=== PATIENT | male | born 1975 | race African-American/Black ===

== ENCOUNTER 2020-08-07 08:11 | Inpatient (IN) ==
[2020-08-07] MEDS ORDERED: KETOROLAC 30 MG/1 ML VIAL IV STA (08:47)
[2020-08-07 09:00] LABS: Basophils % 0.3 % (0.0-0.8); Eosinophils % 0.1 % (0.00-10.9); Hematocrit 32.8 VOL% (42.0-52.0); Hemoglobin 10.9 GM/DL (14.0-18.0); Immature Granulocytes % 1.8 %; Immature Granulocytes Absolute 0.26 #; Lymphocytes # 1.4 10*3/uL (1.4-4.0); Lymphocytes % 9.5 % (21.2-54.2); Mean Corpuscular HGB Conc 33.2 GM/DL (32-36); Mean Corpuscular Volume 93.7 FL (87-102); Mean Platelet Volume 12.3 FL (9.6-12.0); Neutrophils % 75.3 % (38.7-73.9); Platelet Count 85 T/CUMM (130-400); Red Cell Distribution Width 13.4 % (9.3-17.3); White Blood Count 14.8 T/CUMM (4-12)
[2020-08-07] MEDS ORDERED: cefTRIAXone 250 MG VIAL IM STA (09:07)
[2020-08-07] MEDS ORDERED: cefTRIAXone 1,000 MG in SODIUM CHLORIDE 0.9% 100 ML IV STA (09:13)
[2020-08-07 09:20] LABS: Albumin 2.8 G/DL (3.4-5.0); Bilirubin,Total 1.3 MG/DL (0.2-1.0); Calcium 8.6 MG/DL (8.5-10.1); Osmolality,Calculated 245.8 MOS/KG (273-304); Potassium 3.7 MMOL/L (3.5-5.1); Total Protein 9.1 G/DL (6.4-8.2)
[2020-08-07 09:35] LABS: Hypochromasia Slight; Microcytosis Slight; Platelet Estimate Decreased
[2020-08-07 09:54] LABS: Bacteria,Urine Occasional /HPF (Few); Bilirubin,Urine Negative (Negative); Blood, Urine Moderate mg/dL (Negative); Glucose,Urine (UA) Negative (Negative); Ketones,Urine Negative (Negative); Mucus,Urine Occasional /LPF (Occasional); Nitrite,Urine Negative (Negative); Protein,Urine Negative; RBC,Urine 41 /HPF (0-4); Squamous Epithelial Cell,Urine Occasional /HPF (0-10); Urine Appearance CLOUDY (Clear); Urine Color Yellow (Yellow); Urine Specific Gravity 1.002 (1.001-1.035)
[2020-08-07] MEDS ORDERED: ONDANSETRON 4 MG/2 ML VIAL IV PRN (11:12)
[2020-08-07] MEDS ORDERED: NICOTINE 21 MG/24 HR PATCH TRANSDERM PRN (11:12)
[2020-08-07] MEDS ORDERED: GLUCAGON 1 MG VIAL IM PRN (11:12)
[2020-08-07] MEDS ORDERED: DEXTROSE 50% 25 GM/50 ML VIAL IV PRN (11:12)
[2020-08-07] MEDS ORDERED: LEVOFLOXACIN INJ 750 MG/150 ML PREMIX IV SCH (11:30)
[2020-08-07] MEDS ORDERED: THIAMINE INJ 100 MG, FOLIC ACID INJ 1 MG, MULTIVITAMIN INJ 10 ML in SODIUM CHLORIDE 0.9... IV SCH (11:30)
[2020-08-07] MEDS ORDERED: ENOXAPARIN 40 MG/0.4 ML SYRINGE SUBCUT SCH (11:30)
[2020-08-07] MEDS ORDERED: KETOROLAC 30 MG/1 ML VIAL IV PRN (11:53)
[2020-08-07 12:52] LABS: Barbiturates Screen,Urine Negative (Negative); Benzodiazepines Screen,Urine Negative (Negative); Cannabinoid Screen,Urine Positive (Negative); Opiate Screen,Urine Negative (Negative); Phencyclidine Screen,Urine Negative (Negative)
[2020-08-07 13:27] LABS: Hepatitis B Core IgM Quant 0.06 Index; Hepatitis B Surface Ag Quant < 0.10 Index; Hepatitis B Surface Ag Result Non-Reactive (NonReactive); Hepatitis C Virus Ab Quant 0.07 Index; Hepatitis C Virus Ab Result Non-Reactive (NonReactive)
[2020-08-07] MEDS: MULTIVITAMIN (CENTRUM) TABLET PO SCH (14:41)
[2020-08-07] MEDS: SODIUM CHLORIDE 0.9% 1,000 ML IV SCH (14:41)
[2020-08-07] MEDS: THIAMINE 100 MG TABLET PO SCH (14:42)
[2020-08-07] MEDS: FOLIC ACID 1 MG TABLET PO SCH (14:42)
[2020-08-07] MEDS: chlordiazePOXIDE 25 MG CAPSULE PO PRN (20:50)
[2020-08-07] MEDS: TAMSULOSIN 0.4 MG CAPSULE PO SCH (20:50)
[2020-08-07] MEDS: ACETAMINOPHEN 325 MG TABLET PO PRN (23:25)
[2020-08-08] MEDS: SODIUM CHLORIDE 0.9% 1,000 ML IV SCH ×3 (01:11→16:50)
[2020-08-08 04:16] LABS: Basophils % 0.2 % (0.0-0.8); Hematocrit 30.9 VOL% (42.0-52.0); Hemoglobin 10.5 GM/DL (14.0-18.0); Immature Granulocytes % 4.5 %; Lymphocytes # 0.8 10*3/uL (1.4-4.0); Lymphocytes % 8.5 % (21.2-54.2); Mean Corpuscular Volume 92.8 FL (87-102); Monocytes % 13.4 % (1.7-12.7); Neutrophils % 73.4 % (38.7-73.9); Red Blood Count 3.33 MC/CUMM (3.8-5.5); Red Cell Distribution Width 13.2 % (9.3-17.3)
[2020-08-08 04:29] LABS: Platelet Count 63 T/CUMM (130-400)
[2020-08-08 04:36] LABS: Albumin 2.4 G/DL (3.4-5.0); Bilirubin,Total 1.7 MG/DL (0.2-1.0); Calcium 8.1 MG/DL (8.5-10.1); Osmolality,Calculated 248.6 MOS/KG (273-304); Potassium 3.7 MMOL/L (3.5-5.1); Total Protein 7.6 G/DL (6.4-8.2)
[2020-08-08 04:47] LABS: Band Neutrophils 1 % (0-10); Hypochromasia 1+; Lymphocytes 6 % (20-55); Microcytosis Slight; Segmented Neutrophils 82 % (50-85); Total Cells Counted 100
[2020-08-08] MEDS: THIAMINE 100 MG TABLET PO SCH (08:59)
[2020-08-08] MEDS: FOLIC ACID 1 MG TABLET PO SCH (08:59)
[2020-08-08] MEDS: MULTIVITAMIN (CENTRUM) TABLET PO SCH (08:59)
[2020-08-08] MEDS: chlordiazePOXIDE 25 MG CAPSULE PO PRN ×2 (09:00→20:17)
[2020-08-08] MEDS: cefTRIAXone 1,000 MG in SODIUM CHLORIDE 0.9% 100 ML IV SCH (10:56)
[2020-08-08] MEDS: ACETAMINOPHEN 325 MG TABLET PO PRN ×2 (11:58→20:18)
[2020-08-08] MEDS: TAMSULOSIN 0.4 MG CAPSULE PO SCH (20:18)
[2020-08-09] MEDS: SODIUM CHLORIDE 0.9% 1,000 ML IV SCH ×4 (02:40→15:10)
[2020-08-09 05:27] LABS: Basophils % 0.4 % (0.0-0.8); Eosinophils % 0.2 % (0.00-10.9); Hematocrit 29.6 VOL% (42.0-52.0); Hemoglobin 9.9 GM/DL (14.0-18.0); Immature Granulocytes % 1.1 %; Immature Granulocytes Absolute 0.06 #; Lymphocytes # 0.9 10*3/uL (1.4-4.0); Lymphocytes % 14.9 % (21.2-54.2); Mean Corpuscular HGB Conc 33.4 GM/DL (32-36); Mean Corpuscular Volume 93.4 FL (87-102); Mean Platelet Volume 11.8 FL (9.6-12.0); Monocytes % 18.4 % (1.7-12.7); Platelet Count 77 T/CUMM (130-400); Red Blood Count 3.17 MC/CUMM (3.8-5.5); Red Cell Distribution Width 13.3 % (9.3-17.3); White Blood Count 5.7 T/CUMM (4-12)
[2020-08-09 05:54] LABS: Calcium 8.1 MG/DL (8.5-10.1); Eosinophils 1 % (0-10); Hypochromasia 1+; Lymphocytes 15 % (20-55); Osmolality,Calculated 266.2 MOS/KG (273-304); Potassium 3.4 MMOL/L (3.5-5.1); Segmented Neutrophils 74 % (50-85)
[2020-08-09 05:55] LABS: Microcytosis Slight; Polychromasia Slight
[2020-08-09 05:56] LABS: Total Cells Counted 100
[2020-08-09] MEDS: FOLIC ACID 1 MG TABLET PO SCH (09:05)
[2020-08-09] MEDS: THIAMINE 100 MG TABLET PO SCH (09:05)
[2020-08-09] MEDS: MULTIVITAMIN (CENTRUM) TABLET PO SCH (09:05)
[2020-08-09] MEDS: cefTRIAXone 1,000 MG in SODIUM CHLORIDE 0.9% 100 ML IV SCH (11:23)
[2020-08-09] MEDS: ACETAMINOPHEN 325 MG TABLET PO PRN (11:25)
[2020-08-09 11:44] VITALS: BP 156/75
[2020-08-09] MEDS ORDERED: POTASSIUM CHLORIDE 20 MEQ TABLET PO ONE (13:16)
[2020-08-09] MEDS ORDERED: LEVOFLOXACIN INJ 500 MG/100 ML PREMIX IV SCH (13:30)
== END 2020-08-09 14:59 | disposition left against medical advice (07) | DRG 728 ==
LOC: N.ED 08:11 → SUATTDRO 11:12 → N.EDINP 11:12 → N.3E 13:04
PROVIDERS: ADMIT Internal Medicine; ATTEND Internal Medicine

== ENCOUNTER 2021-06-05 06:59 | Inpatient (IN) ==
[2021-06-05] MEDS ORDERED: ALBUTEROL 2.5 MG/3 ML NEB RESP TX STA (07:18)
[2021-06-05 07:52] LABS: Basophils % 0.4 % (0.0-0.8); Eosinophils % 0.2 % (0.00-10.9); Hematocrit 22.4 VOL% (42.0-52.0); Hemoglobin 7.7 GM/DL (14.0-18.0); Immature Granulocytes % 1.8 %; Lymphocytes # 1.3 10*3/uL (1.4-4.0); Lymphocytes % 23.1 % (21.2-54.2); Mean Corpuscular HGB Conc 34.4 GM/DL (32-36); Mean Corpuscular Volume 93.3 FL (87-102); Mean Platelet Volume 13.1 FL (9.6-12.0); Monocytes % 9.7 % (1.7-12.7); Neutrophils % 64.8 % (38.7-73.9); Platelet Count 40 T/CUMM (130-400); Red Cell Distribution Width 16.4 % (9.3-17.3); White Blood Count 5.5 T/CUMM (4-12)
[2021-06-05 08:08] LABS: Hypochromia 1+; Microcytosis 1+; Platelet Estimate Decreased
[2021-06-05 08:09] LABS: Bilirubin,Total 2.8 MG/DL (0.20-1.00); Osmolality,Calculated 251.1 MOS/KG (273-304); Potassium 2.6 MMOL/L (3.5-5.1); Total Protein 8.3 G/DL (6.4-8.2)
[2021-06-05 08:11] LABS: INR 1.2; PT Patient Result 13.1 SECS (10.5-12.0); Partial Thromboplastin Time 35.3 SECS (23.8-32.1)
[2021-06-05 08:17] LABS: % Iron Saturation 53.1 % (18-50)
[2021-06-05 08:35] LABS: Folate 4.84 NG/ML (5.38-24.0)
[2021-06-05] MEDS ORDERED: POTASSIUM CHLORIDE 20 MEQ TABLET PO ONE ×2 (10:07→16:10)
[2021-06-05] MEDS: LACTATED RINGERS 1,000 ML IV SCH ×2 (11:06→22:56)
[2021-06-05] MEDS ORDERED: ONDANSETRON 4 MG/2 ML VIAL IV PRN (11:40)
[2021-06-05] MEDS ORDERED: hydrALAZINE 20 MG/1 ML VIAL IV PRN (11:40)
[2021-06-05] MEDS ORDERED: ACETAMINOPHEN 325 MG TABLET PO PRN (11:40)
[2021-06-05] MEDS ORDERED: GLUCAGON 1 MG VIAL IM PRN (11:40)
[2021-06-05] MEDS ORDERED: DEXTROSE 10% 250 ML BAG IV PRN (11:53)
[2021-06-05] MEDS ORDERED: LORazepam 2 MG/1 ML VIAL IV PRN (12:00)
[2021-06-05] MEDS: ALBUTEROL/IPRATROPIUM 3 ML NEB RESP TX SCH ×2 (13:00→19:00)
[2021-06-05 13:06] LABS: Hepatitis B Core IgM Quant 0.09 Index; Hepatitis B Surface Ag Quant < 0.10 Index; Hepatitis B Surface Ag Result Non-Reactive (NonReactive); Hepatitis C Virus Ab Quant 0.26 Index; Hepatitis C Virus Ab Result Non-Reactive (NonReactive)
[2021-06-05 14:17] LABS: Hemoglobin 7.2 GM/DL (14.0-18.0)
[2021-06-05 14:33] LABS: Calcium 7.8 MG/DL (8.5-10.1); Osmolality,Calculated 258.7 MOS/KG (273-304); Potassium 2.8 MMOL/L (3.5-5.1)
[2021-06-05] MEDS: FOLIC ACID 1 MG TABLET PO SCH (15:46)
[2021-06-05] MEDS ORDERED: MAGNESIUM SULF RIDER 2 GM/50 ML PREMIX IV ONE (16:10)
[2021-06-05] MEDS ORDERED: SODIUM CHLORIDE 0.9% 1,000 ML IV PRN (16:11)
[2021-06-05] MEDS: PANTOPRAZOLE 40 MG VIAL IV SCH ×2 (18:07→22:55)
[2021-06-05 20:25] LABS: Hematocrit 21.1 VOL% (42.0-52.0); Hemoglobin 7.1 GM/DL (14.0-18.0)
[2021-06-05] MEDS: DOCUSATE SODIUM 100 MG CAPSULE PO SCH (22:55)
[2021-06-06] MEDS: ALBUTEROL/IPRATROPIUM 3 ML NEB RESP TX SCH ×4 (00:20→19:21)
[2021-06-06 05:21] LABS: Basophils % 0.4 % (0.0-0.8); Hematocrit 23.5 VOL% (42.0-52.0); Immature Granulocytes % 1.5 %; Immature Granulocytes Absolute 0.08 #; Lymphocytes # 1.2 10*3/uL (1.4-4.0); Lymphocytes % 22.6 % (21.2-54.2); Mean Corpuscular Volume 91.4 FL (87-102); Mean Platelet Volume 12.8 FL (9.6-12.0); Monocytes % 9.9 % (1.7-12.7); Neutrophils % 65.6 % (38.7-73.9); Red Blood Count 2.57 MC/CUMM (3.8-5.5); Red Cell Distribution Width 17.3 % (9.3-17.3); White Blood Count 5.4 T/CUMM (4-12)
[2021-06-06 05:29] LABS: Platelet Count 35 T/CUMM (130-400)
[2021-06-06 05:36] LABS: Calcium 7.8 MG/DL (8.5-10.1); Osmolality,Calculated 261.4 MOS/KG (273-304); Potassium 3.5 MMOL/L (3.5-5.1)
[2021-06-06] MEDS ORDERED: PANTOPRAZOLE 40 MG TABLET PO SCH (06:30)
[2021-06-06 06:48] LABS: Target Cells Slight
[2021-06-06 06:49] LABS: Platelet Estimate Adequate
[2021-06-06] MEDS ORDERED: LACTATED RINGERS 1,000 ML IV SCH (08:00)
[2021-06-06] MEDS: LACTATED RINGERS 1,000 ML IV SCH ×2 (12:18→17:12)
[2021-06-06] MEDS: PANTOPRAZOLE 40 MG VIAL IV SCH ×2 (12:24→21:01)
[2021-06-06] MEDS: MULTIVITAMIN (CENTRUM) TABLET PO SCH (12:24)
[2021-06-06] MEDS: NICOTINE 21 MG/24 HR PATCH TRANSDERM SCH ×2 (12:24→17:23)
[2021-06-06] MEDS: FOLIC ACID 1 MG TABLET PO SCH (12:25)
[2021-06-06] MEDS: DOCUSATE SODIUM 100 MG CAPSULE PO SCH ×2 (12:25→21:01)
[2021-06-06] MEDS: THIAMINE 100 MG TABLET PO SCH (16:25)
[2021-06-07] MEDS: ALBUTEROL/IPRATROPIUM 3 ML NEB RESP TX SCH ×2 (00:45→07:45)
[2021-06-07] MEDS ORDERED: LORazepam 2 MG/1 ML VIAL IM PRN (01:12)
[2021-06-07] MEDS: LACTATED RINGERS 1,000 ML IV SCH ×2 (02:52→11:54)
[2021-06-07 05:21] LABS: Basophils % 0.3 % (0.0-0.8); Eosinophils % 0.2 % (0.00-10.9); Hematocrit 24.7 VOL% (42.0-52.0); Hemoglobin 8.2 GM/DL (14.0-18.0); Immature Granulocytes % 1.1 %; Immature Granulocytes Absolute 0.07 #; Lymphocytes # 1.3 10*3/uL (1.4-4.0); Lymphocytes % 21.3 % (21.2-54.2); Mean Corpuscular HGB Conc 33.2 GM/DL (32-36); Mean Corpuscular Volume 91.8 FL (87-102); Mean Platelet Volume 12.7 FL (9.6-12.0); Monocytes % 10.3 % (1.7-12.7); Neutrophils % 66.8 % (38.7-73.9); Red Blood Count 2.69 MC/CUMM (3.8-5.5); Red Cell Distribution Width 18.8 % (9.3-17.3); White Blood Count 6.2 T/CUMM (4-12)
[2021-06-07 05:22] LABS: Platelet Count 45 T/CUMM (130-400)
[2021-06-07 05:43] LABS: Hypochromia 1+; Platelet Estimate Decreased
[2021-06-07 05:51] LABS: Albumin 1.7 G/DL (3.4-5.0); Bilirubin,Total 2.7 MG/DL (0.20-1.00); Calcium 7.9 MG/DL (8.5-10.1); Osmolality,Calculated 259.5 MOS/KG (273-304); Potassium 3.5 MMOL/L (3.5-5.1); Total Protein 7.5 G/DL (6.4-8.2)
[2021-06-07] MEDS: FOLIC ACID 1 MG TABLET PO SCH (08:31)
[2021-06-07] MEDS: THIAMINE 100 MG TABLET PO SCH (08:31)
[2021-06-07] MEDS: MULTIVITAMIN (CENTRUM) TABLET PO SCH (08:31)
[2021-06-07] MEDS: DOCUSATE SODIUM 100 MG CAPSULE PO SCH (08:31)
[2021-06-07] MEDS: NICOTINE 21 MG/24 HR PATCH TRANSDERM SCH (08:32)
[2021-06-07] MEDS: PANTOPRAZOLE 40 MG VIAL IV SCH (08:36)
[2021-06-07 12:24] VITALS: BP 105/53
== END 2021-06-07 13:49 | disposition home or self-care (01) | DRG 378 ==
LOC: N.ED 06:59 → SUATTDRO 11:06 → N.EDINP 11:06 → N.5E 11:36
PROVIDERS: ADMIT Internal Medicine; ATTEND Internal Medicine

== ENCOUNTER 2021-08-10 10:56 | Inpatient (IN) ==
[2021-08-10] MEDS ORDERED: SODIUM CHLORIDE 0.9% 1,000 ML IV STA (11:39)
[2021-08-10] MEDS ORDERED: THIAMINE INJ 100 MG, FOLIC ACID INJ 1 MG, MAGNESIUM SULF INJ 2 GM, MULTIVITAMIN INJ 10 ... IV ONE (11:39)
[2021-08-10 12:21] LABS: Basophils % 0.3 % (0.0-0.8); Hematocrit 24.8 VOL% (42.0-52.0); Hemoglobin 8.6 GM/DL (14.0-18.0); Immature Granulocytes % 2.3 %; Immature Granulocytes Absolute 0.24 #; Lymphocytes # 1.1 10*3/uL (1.4-4.0); Lymphocytes % 10.4 % (21.2-54.2); Mean Corpuscular HGB Conc 34.7 GM/DL (32-36); Mean Corpuscular Volume 90.2 FL (87-102); Mean Platelet Volume 13.6 FL (9.6-12.0); Monocytes # 1.3 10*3/uL (0.11-0.8); Monocytes % 12.3 % (1.7-12.7); Neutrophils % 74.7 % (38.7-73.9); Platelet Count 73 T/CUMM (130-400); Red Blood Count 2.75 MC/CUMM (3.8-5.5); Red Cell Distribution Width 16.3 % (9.3-17.3); White Blood Count 10.3 T/CUMM (4-12)
[2021-08-10 12:27] LABS: Mucus,Urine Occasional /LPF (Occasional); RBC,Urine 1 /HPF (0-4); Squamous Epithelial Cell,Urine Occasional /HPF (0-10); Urine Appearance Slightly Cloudy (Clear); Urine Color Yellow (Yellow); Urine Specific Gravity 1.006 (1.001-1.035)
[2021-08-10 12:28] LABS: Bilirubin,Urine Negative (Negative); Blood, Urine Negative (Negative); Glucose,Urine (UA) Negative (Negative); Ketones,Urine Trace mg/dL (Negative); Nitrite,Urine Negative (Negative); Protein,Urine Negative (Negative)
[2021-08-10 12:28] LABS: INR 1.2
[2021-08-10 12:43] LABS: Barbiturates Screen,Urine Negative (Negative); Benzodiazepines Screen,Urine Negative (Negative); Cannabinoid Screen,Urine Negative (Negative); Opiate Screen,Urine Negative (Negative); Phencyclidine Screen,Urine Negative (Negative)
[2021-08-10 12:46] LABS: Albumin 2.1 G/DL (3.4-5.0); Bilirubin,Total 2.5 MG/DL (0.20-1.00); Calcium 8.3 MG/DL (8.5-10.1); Osmolality,Calculated 252.2 MOS/KG (273-304); Potassium 3.1 MMOL/L (3.5-5.1); Thyroid Stimulating Hormone 1.04 uIU/ml (0.358-3.74); Total Protein 8.8 G/DL (6.4-8.2)
[2021-08-10] MEDS ORDERED: MAGNESIUM SULF RIDER 4 GM/100 ML PREMIX IV PRN (13:27)
[2021-08-10] MEDS ORDERED: MAGNESIUM SULF RIDER 2 GM/50 ML PREMIX IV PRN (13:27)
[2021-08-10] MEDS ORDERED: POTASSIUM CHLORIDE 20 MEQ TABLET PO PRN (13:27)
[2021-08-10] MEDS ORDERED: GLUCAGON 1 MG VIAL IM PRN (13:39)
[2021-08-10] MEDS ORDERED: ONDANSETRON 4 MG/2 ML VIAL IV PRN (13:39)
[2021-08-10] MEDS ORDERED: NICOTINE 21 MG/24 HR PATCH TRANSDERM PRN (13:39)
[2021-08-10] MEDS ORDERED: ACETAMINOPHEN 325 MG TABLET PO PRN (13:39)
[2021-08-10] MEDS ORDERED: DEXTROSE 10% 250 ML BAG IV PRN (13:52)
[2021-08-10] MEDS ORDERED: LACTATED RINGERS 1,000 ML IV SCH (14:00)
[2021-08-10] MEDS: PANTOPRAZOLE 40 MG TABLET PO SCH (14:37)
[2021-08-10] MEDS: SODIUM CHLORIDE 0.9% 1,000 ML IV SCH (14:37)
[2021-08-10] MEDS: chlordiazePOXIDE 25 MG CAPSULE PO SCH ×2 (14:37→21:30)
[2021-08-10 14:43] LABS: Arterial Base Excess iSTAT -2 MMOL/L (-2.5-2.5); Arterial Bicarbonate iSTAT 20.8 MMOL/L (20-26); Arterial O2 Saturation iSTAT 98 % (95-100); Arterial PCO2 iSTAT 29 MM HG (35-48); Arterial PO2 iSTAT 96 MM HG (80-95); Arterial Total CO2 iSTAT 22 MMO/L (23-27); Arterial pH iSTAT 7.461 (7.35-7.45)
[2021-08-10] MEDS: POTASSIUM CHLORIDE RIDER 10 MEQ/100 ML PREMIX IV PRN (18:25)
[2021-08-10] MEDS: FOLIC ACID 1 MG TABLET PO SCH (21:30)
[2021-08-11] MEDS: POTASSIUM CHLORIDE RIDER 10 MEQ/100 ML PREMIX IV PRN ×3 (00:17→03:46)
[2021-08-11] MEDS: SODIUM CHLORIDE 0.9% 1,000 ML IV SCH ×3 (00:17→21:10)
[2021-08-11] MEDS: chlordiazePOXIDE 25 MG CAPSULE PO SCH ×4 (01:54→21:10)
[2021-08-11 04:51] LABS: Basophils % 0.1 % (0.0-0.8); Hematocrit 23.1 VOL% (42.0-52.0); Hemoglobin 7.8 GM/DL (14.0-18.0); Immature Granulocytes % 2.1 %; Immature Granulocytes Absolute 0.17 #; Lymphocytes # 0.9 10*3/uL (1.4-4.0); Lymphocytes % 10.8 % (21.2-54.2); Mean Corpuscular HGB Conc 33.8 GM/DL (32-36); Mean Corpuscular Volume 91.7 FL (87-102); Mean Platelet Volume 11.3 FL (9.6-12.0); Monocytes # 0.8 10*3/uL (0.11-0.8); Monocytes % 10.3 % (1.7-12.7); Neutrophils % 76.7 % (38.7-73.9); Platelet Count 77 T/CUMM (130-400); Red Blood Count 2.52 MC/CUMM (3.8-5.5); Red Cell Distribution Width 16.9 % (9.3-17.3); White Blood Count 8.2 T/CUMM (4-12)
[2021-08-11 05:13] LABS: Albumin 1.5 G/DL (3.4-5.0); Bilirubin,Total 1.6 MG/DL (0.20-1.00); Calcium 7.4 MG/DL (8.5-10.1); Osmolality,Calculated 260.5 MOS/KG (273-304); Platelet Estimate Decreased; Potassium 3.1 MMOL/L (3.5-5.1); Total Protein 7.1 G/DL (6.4-8.2)
[2021-08-11] MEDS: PANTOPRAZOLE 40 MG TABLET PO SCH (05:45)
[2021-08-11] MEDS ORDERED: POTASSIUM CHLORIDE 20 MEQ TABLET PO ONE (07:35)
[2021-08-11] MEDS: THIAMINE 100 MG TABLET PO SCH (08:12)
[2021-08-11] MEDS: MULTIVITAMIN (BEROCCA) TABLET PO SCH (08:12)
[2021-08-11] MEDS: ATORVASTATIN 40 MG TABLET PO SCH (21:10)
[2021-08-11] MEDS: FOLIC ACID 1 MG TABLET PO SCH (21:10)
[2021-08-12 04:56] LABS: Basophils % 0.3 % (0.0-0.8); Eosinophils % 0.1 % (0.00-10.9); Hematocrit 22.6 VOL% (42.0-52.0); Hemoglobin 7.5 GM/DL (14.0-18.0); Immature Granulocytes % 0.9 %; Immature Granulocytes Absolute 0.06 #; Lymphocytes # 1.4 10*3/uL (1.4-4.0); Lymphocytes % 19.9 % (21.2-54.2); Mean Corpuscular HGB Conc 33.2 GM/DL (32-36); Mean Corpuscular Volume 93.8 FL (87-102); Mean Platelet Volume 11.8 FL (9.6-12.0); Monocytes % 15.4 % (1.7-12.7); Neutrophils % 63.4 % (38.7-73.9); Platelet Count 86 T/CUMM (130-400); Red Blood Count 2.41 MC/CUMM (3.8-5.5); Red Cell Distribution Width 17.4 % (9.3-17.3); White Blood Count 6.8 T/CUMM (4-12)
[2021-08-12 05:01] LABS: Calcium 7.7 MG/DL (8.5-10.1); Osmolality,Calculated 265.2 MOS/KG (273-304); Potassium 3.1 MMOL/L (3.5-5.1)
[2021-08-12 05:11] LABS: Risk Ratio 3.53; VLDL Cholesterol 12.4 MG/DL
[2021-08-12] MEDS: PANTOPRAZOLE 40 MG TABLET PO SCH (05:49)
[2021-08-12] MEDS: chlordiazePOXIDE 25 MG CAPSULE PO SCH ×3 (05:49→21:35)
[2021-08-12] MEDS ORDERED: POTASSIUM CHLORIDE 20 MEQ TABLET PO ONE (07:32)
[2021-08-12 09:16] LABS: % Iron Saturation 34.6 % (18-50)
[2021-08-12] MEDS: THIAMINE 100 MG TABLET PO SCH (09:28)
[2021-08-12] MEDS: MULTIVITAMIN (BEROCCA) TABLET PO SCH (09:28)
[2021-08-12 10:39] LABS: Folate 13.6 NG/ML (5.38-24.0)
[2021-08-12] MEDS ORDERED: PHENYLEPH/MINERAL OIL/PETROLAT 57 GM TUBE TOP PRN (11:32)
[2021-08-12] MEDS: SODIUM CHLORIDE 0.9% 1,000 ML IV SCH (20:15)
[2021-08-12] MEDS: ATORVASTATIN 40 MG TABLET PO SCH (21:35)
[2021-08-12] MEDS: FOLIC ACID 1 MG TABLET PO SCH (21:35)
[2021-08-13 05:18] LABS: Basophils % 0.4 % (0.0-0.8); Eosinophils % 0.4 % (0.00-10.9); Hematocrit 22.4 VOL% (42.0-52.0); Hemoglobin 7.5 GM/DL (14.0-18.0); Immature Granulocytes % 0.8 %; Immature Granulocytes Absolute 0.04 #; Lymphocytes # 1.3 10*3/uL (1.4-4.0); Mean Corpuscular HGB Conc 33.5 GM/DL (32-36); Mean Corpuscular Volume 93.3 FL (87-102); Mean Platelet Volume 13.2 FL (9.6-12.0); Monocytes # 0.7 10*3/uL (0.11-0.8); Monocytes % 13.7 % (1.7-12.7); Neutrophils % 59.7 % (38.7-73.9); Platelet Count 89 T/CUMM (130-400); Red Cell Distribution Width 17.4 % (9.3-17.3); White Blood Count 5.3 T/CUMM (4-12)
[2021-08-13 05:33] LABS: Osmolality,Calculated 265.1 MOS/KG (273-304); Potassium 3.5 MMOL/L (3.5-5.1)
[2021-08-13] MEDS: chlordiazePOXIDE 25 MG CAPSULE PO SCH (06:26)
[2021-08-13] MEDS: PANTOPRAZOLE 40 MG TABLET PO SCH (06:26)
[2021-08-13] MEDS: THIAMINE 100 MG TABLET PO SCH (08:26)
[2021-08-13] MEDS: MULTIVITAMIN (BEROCCA) TABLET PO SCH (08:26)
[2021-08-13] MEDS ORDERED: SODIUM CHLORIDE 0.9% 1,000 ML IV PRN (08:53)
[2021-08-13] MEDS ORDERED: fentaNYL 100 MCG/2 ML VIAL ONE (10:04)
[2021-08-13] MEDS ORDERED: MIDAZOLAM 2 MG/2 ML VIAL ONE (10:04)
[2021-08-13] MEDS ORDERED: LIDOCAINE 2% 5 ML VIAL ONE (11:21)
[2021-08-13] MEDS ORDERED: SEVOFLURANE 1 UNIT/15 MINUTE INH ONE (11:21)
[2021-08-13] MEDS ORDERED: SUCCINYLCHOLINE 200 MG/10 ML VIAL ONE (11:21)
[2021-08-13] MEDS ORDERED: propofoL 200 MG/20 ML VIAL IV ONE (11:21)
[2021-08-13] MEDS ORDERED: ONDANSETRON 4 MG/2 ML VIAL ONE (11:21)
[2021-08-13] MEDS ORDERED: ROCURONIUM 50 MG/5 ML VIAL IV ONE (11:21)
[2021-08-13] MEDS: CHOLECALCIFEROL 5,000 UNIT TABLET PO SCH (12:36)
[2021-08-13] MEDS: SODIUM CHLORIDE 0.9% 1,000 ML IV SCH (21:21)
[2021-08-13] MEDS: DOCUSATE SODIUM 100 MG CAPSULE PO SCH (21:21)
[2021-08-13] MEDS: FOLIC ACID 1 MG TABLET PO SCH (21:21)
[2021-08-13] MEDS: ATORVASTATIN 40 MG TABLET PO SCH (21:21)
[2021-08-14] MEDS: SODIUM CHLORIDE 0.9% 1,000 ML IV SCH ×2 (03:40→20:28)
[2021-08-14 05:29] LABS: Basophils % 0.6 % (0.0-0.8); Eosinophils % 0.2 % (0.00-10.9); Hematocrit 25.1 VOL% (42.0-52.0); Hemoglobin 8.4 GM/DL (14.0-18.0); Immature Granulocytes % 0.8 %; Immature Granulocytes Absolute 0.05 #; Lymphocytes # 1.7 10*3/uL (1.4-4.0); Lymphocytes % 25.7 % (21.2-54.2); Mean Corpuscular HGB Conc 33.5 GM/DL (32-36); Mean Corpuscular Volume 92.6 FL (87-102); Mean Platelet Volume 12.8 FL (9.6-12.0); Monocytes # 0.6 10*3/uL (0.11-0.8); Monocytes % 9.9 % (1.7-12.7); Neutrophils % 62.8 % (38.7-73.9); Platelet Count 105 T/CUMM (130-400); Red Blood Count 2.71 MC/CUMM (3.8-5.5); Red Cell Distribution Width 17.4 % (9.3-17.3); White Blood Count 6.5 T/CUMM (4-12)
[2021-08-14 05:49] LABS: Calcium 7.7 MG/DL (8.5-10.1); Osmolality,Calculated 265.1 MOS/KG (273-304); Potassium 3.5 MMOL/L (3.5-5.1)
[2021-08-14] MEDS: PANTOPRAZOLE 40 MG TABLET PO SCH ×2 (06:07→06:12)
[2021-08-14] MEDS: THIAMINE 100 MG TABLET PO SCH (10:07)
[2021-08-14] MEDS: AMOXICILLIN/CLAV 875 MG TABLET PO SCH ×2 (10:07→17:38)
[2021-08-14] MEDS: DOCUSATE SODIUM 100 MG CAPSULE PO SCH ×2 (10:07→20:29)
[2021-08-14] MEDS: MULTIVITAMIN (BEROCCA) TABLET PO SCH (10:07)
[2021-08-14] MEDS: CHOLECALCIFEROL 5,000 UNIT TABLET PO SCH (10:07)
[2021-08-14] MEDS: FOLIC ACID 1 MG TABLET PO SCH (20:28)
[2021-08-14] MEDS: ATORVASTATIN 40 MG TABLET PO SCH (20:29)
[2021-08-15] MEDS: SODIUM CHLORIDE 0.9% 1,000 ML IV SCH ×4 (03:23→13:07)
[2021-08-15] MEDS: PANTOPRAZOLE 40 MG TABLET PO SCH (05:50)
[2021-08-15 06:14] LABS: Basophils % 0.7 % (0.0-0.8); Eosinophils % 0.3 % (0.00-10.9); Hematocrit 24.2 VOL% (42.0-52.0); Hemoglobin 8.1 GM/DL (14.0-18.0); Immature Granulocytes Absolute 0.06 #; Lymphocytes # 1.9 10*3/uL (1.4-4.0); Lymphocytes % 31.3 % (21.2-54.2); Mean Corpuscular HGB Conc 33.5 GM/DL (32-36); Mean Corpuscular Volume 92.7 FL (87-102); Mean Platelet Volume 12.4 FL (9.6-12.0); Monocytes # 0.6 10*3/uL (0.11-0.8); Monocytes % 9.3 % (1.7-12.7); Neutrophils % 57.4 % (38.7-73.9); Platelet Count 112 T/CUMM (130-400); Red Blood Count 2.61 MC/CUMM (3.8-5.5); Red Cell Distribution Width 17.4 % (9.3-17.3); White Blood Count 5.9 T/CUMM (4-12)
[2021-08-15 06:32] LABS: Calcium 7.5 MG/DL (8.5-10.1); Osmolality,Calculated 269.8 MOS/KG (273-304); Potassium 3.1 MMOL/L (3.5-5.1)
[2021-08-15] MEDS: POTASSIUM CHLORIDE 20 MEQ TABLET PO PRN ×3 (06:47→13:06)
[2021-08-15] MEDS ORDERED: POTASSIUM CHLORIDE 20 MEQ TABLET PO ONE (08:30)
[2021-08-15] MEDS: MULTIVITAMIN (BEROCCA) TABLET PO SCH (09:27)
[2021-08-15] MEDS: AMOXICILLIN/CLAV 875 MG TABLET PO SCH (09:27)
[2021-08-15] MEDS: DOCUSATE SODIUM 100 MG CAPSULE PO SCH (09:27)
[2021-08-15] MEDS: CHOLECALCIFEROL 5,000 UNIT TABLET PO SCH (09:28)
[2021-08-15] MEDS: THIAMINE 100 MG TABLET PO SCH (09:28)
[2021-08-15 12:00] VITALS: BP 105/50
== END 2021-08-15 13:55 | disposition home or self-care (01) | DRG 982 ==
LOC: EDBD → EDUNIT# → N.ED 10:56 → N.EDINP 13:39 → SUATTDRO 13:39 → N.3E 14:29
PROVIDERS: ADMIT Internal Medicine; ATTEND Internal Medicine